=== PATIENT | male | born 1980 ===

== ENCOUNTER 2024-12-01 08:06 | Day surgery (SDC) | payer OTHER ==
[~2024-12-01 08:06] MED LIST: Albuterol 0.083% 2.5 MG/3 ML Neb Soln NEB PRN; Metoclopramide 10 MG/2 ML SDV IVPUSH PRN; Morphine 2 MG/ML SYRINGE IVPUSH PRN; Naloxone 0.4 MG/ML SDV IVPUSH PRN; Ondansetron 4 MG/2 ML SDV IVPUSH PRN; Phenylephrine HCl In 0.9% NaCl 1 MG/10 ML Syringe IVPUSH PRN
[2024-12-01] MEDS: Lactated Ringers 1,000 ML IV SCH (08:42)
[2024-12-01] MEDS ORDERED: Bupivacaine 0.5%/EPINEPHrine 1:200,000 30 ML SDV ONE (09:10)
[2024-12-01] MEDS ORDERED: Lidocaine 1% 5 ML VIAL ONE (09:22)
[2024-12-01] MEDS ORDERED: Ondansetron 4 MG/2 ML SDV ONE (09:22)
[2024-12-01] MEDS ORDERED: Propofol 200 MG/20 ML SDV ONE ×2 (09:22→09:51)
[2024-12-01] MEDS ORDERED: Dexamethasone 4 MG/ML 5 ML MDV ONE (09:22)
[2024-12-01] MEDS ORDERED: ceFAZolin 2 GM Vial ONE (09:22)
[2024-12-01] MEDS ORDERED: fentaNYL 100 MCG/2 ML SDV ONE (09:22)
[2024-12-01] MEDS ORDERED: Sodium Chloride 0.9% 20 ML ONE (09:24)
[2024-12-01] MEDS ORDERED: Ketorolac 30 MG/ML SDV ONE (09:56)
[2024-12-01] MEDS: HYDROmorphone 1 MG/ML Syringe IVPUSH PRN (10:55)
[2024-12-01] MEDS: fentaNYL 50 MCG/ML SDV IVPUSH PRN (11:02)
[2024-12-01] MEDS: Acetaminophen/HYDROcodone 325-5 MG Tab PO ONE (11:29)
== END 2024-12-01 11:55 | disposition home or self-care (01) ==
LOC: MW.SDS 08:06
PROVIDERS: ATTEND Orthopaedic Surgery
DX: S62.305A Unspecified fracture of fourth metacarpal bone, left hand, initial encounter for closed fracture (principal); J45.909 Unspecified asthma, uncomplicated; Z79.899 Other long term (current) drug therapy; X58.XXXA Exposure to other specified factors, initial encounter
CPT/HCPCS: 26608; 76000; A9270; J0690; J1100; J1171; J1885; J2003; J2405; J2704; J3010; J7120; 01820; J3490